=== PATIENT | female | born 1995 | race Caucasian/White ===

== ENCOUNTER 2016-08-05 19:30 | Emergency (ER) | payer SELFPAY ==
[~2016-08-05 19:30] MED LIST: AMOX500T PO; DICL50 PO; MACR100C2 PO
[2016-08-05 19:32] VITALS: BP 118/78; PULSE 97; RESP 16; TEMP 98.5; O2SAT 98
== END 2016-08-05 19:59 | disposition left against medical advice (07) ==
LOC: NED 19:30
DX: R07.9 Chest pain, unspecified (principal)
CPT/HCPCS: 99281

== ENCOUNTER 2017-01-01 12:34 | Emergency (ER) | payer SELFPAY ==
[~2017-01-01] VITALS: Ht 162.6 cm; Wt 77.0 kg
[2017-01-01 12:35] VITALS: BP 116/71; PULSE 92; RESP 20; TEMP 99.3; O2SAT 98
--- NOTE | 2017-01-01 13:02 | PD ---
Physical Exam Time Seen by Provider: 13:00 Narrative 21yo F c/o bottm left tooth pain x 4 days. No facial edema or erythema. Denies fever or vomiting. Patient seen in triage. VS reviewed. Awaiting bed placement. Data Data Last Documented VS Vital Signs Date Time Temp Pulse Resp B/P Pulse Ox O2 Delivery O2 Flow Rate FiO2 01/01/17 12:35 99.3 92 20 116/71 98 Room Air MDM Supervised Visit with ANTONIO: Maribel Cash Jan 01, 2017 13:02
[2017-01-01 13:48] VITALS: BP 98/63; PULSE 73; TEMP 99.4; O2SAT 99
--- NOTE | 2017-01-01 13:55 | PD ---
HPI . left lower tooth pain x 4 days Chief Complaint: Oral / Dental Pain or Problem Time Seen by Provider: 13:52 Travel History International Travel<30 days: No Contact w/Intl Traveler<30days: No Traveled to known affect area: No History of Present Illness HPI 21-year-old female with no significant medical history here with complaints of left lower tooth pain for 4 days. Patient says she's tried [id number] Orajel without any relief. She tells me she cannot take any Excedrin secondary something with caffeine. She has not been able to see a dentist. She denies any fever or chills. PFSH Past Medical History Hx Anticoagulant Therapy: No Anxiety: Yes Cardiovascular Problems: Yes (PSVT) Chemotherapy: No Cerebrovascular Accident: No Diabetes: No Diminished Hearing: No Immune Disorder: No Respiratory: No Myocardial Infarction: No Renal Failure: No Ulcer: No ?: Not LMP: LAST WEEK Past Surgical History Hysterectomy: No Social History Alcohol Use: No Tobacco Use: Yes (1 ppd) Substance Use: Yes (marijuana few days ago) Allergies-Medications (Allergen,Severity, Reaction): Coded Allergies: Ativan (Verified Adverse Reaction, Intermediate, works opposite, 01/01/17) Reported Meds & Prescriptions Reported Meds & Active Scripts Active No Active Prescriptions or Reported Medications Review of Systems General / Constitutional: No: Fever Eyes: No: Visual changes HENT: Positive: Dental Difficulties, No: Headaches Cardiovascular: No: Chest Pain or Discomfort Respiratory: No: Shortness of Breath Gastrointestinal: No: Abdominal Pain Genitourinary: No: Dysuria Musculoskeletal: No: Pain Skin: No Rash Neurologic: No: Weakness Psychiatric: No: Depression Endocrine: No: Polydipsia Hematologic/Lymphatic: No: Easy Bruising Physical Exam Narrative GENERAL: AAO x 3, no acute distress, Well-nourished, well-developed patient. SKIN: Warm and dry. No visible rashes or bruising. HEAD: Normocephalic and atraumatic. EYES: No scleral icterus. No injection or drainage. EOM intact, PERRLA ENT: No nasal drainage noted. Mucous membranes pink. Airway patent. Entire oral cavity inspected and there is no overt abnormality with her teeth. There is no fluid collection or abscess. There is no facial swelling NECK: Supple, trachea midline. No JVD. No lymphadenopathy CARDIOVASCULAR: Regular rate and rhythm without murmurs, gallops, or rubs. RESPIRATORY: Breath sounds equal bilaterally. No accessory muscle use. No rhonchi or rales. GASTROINTESTINAL: Visual inspection normal EXTREMITIES: No cyanosis or edema. BACK: Nontender without obvious deformity. No CVA tenderness. PSYCH: AAO x 3, normal affect. Data Data Last Documented VS Vital Signs Date Time Temp Pulse Resp B/P Pulse Ox O2 Delivery O2 Flow Rate FiO2 01/01/17 13:48 99.4 73 98/63 99 Room Air 01/01/17 12:35 20 MDM Medical Decision Making Medical Screen Exam Complete: Yes Emergency Medical Condition: No Medical Record Reviewed: Yes Differential Diagnosis Dentalgia, possible cavity, less likely oral abscess Narrative Course A medical screening exam was performed: At the time of evaluation the presenting medical condition was determined not to be of an emergent nature. The patient was given the option of receiving additional care, but declined. Patient was given options for additional community resources from which to obtain care. The Patient Has Been advised to seek medical attention for their presenting complaint. The patient has been advised to return to the ER at any time if an emergent condition develops. Diagnosis Primary Impression: Encounter for medical screening examination Scripts No Active Prescriptions or Reported Meds Condition: Stable Maria Clark Jan 01, 2017 13:54
== END 2017-01-01 14:02 | disposition left against medical advice (07) ==
LOC: NEPD 12:34
DX: K02.9 Dental caries, unspecified (principal); F17.210 Nicotine dependence, cigarettes, uncomplicated
CPT/HCPCS: 99281

== ENCOUNTER 2017-01-22 00:20 | Emergency (ER) | payer SELFPAY ==
[~2017-01-22] VITALS: Ht 162.6 cm; Wt 78.0 kg
[2017-01-22 00:22] VITALS: BP 111/68; PULSE 78; RESP 16; TEMP 98.5; O2SAT 98
[2017-01-22] MEDS ORDERED: ORPHENADRINE INJ 60 MG/2 ML AMP IM ONE (00:45)
[2017-01-22] MEDS ORDERED: KETOROLAC TROMETHAMINE 60 MG/2 ML (IM) VIAL IM ONE (00:45)
[2017-01-22] MEDS ORDERED: DEXAMETHASONE SOD PHOS 20 MG/5 ML VIAL IM ONE (00:45)
[2017-01-22] MEDS ORDERED: PRED50 PO (00:52)
[2017-01-22] MEDS ORDERED: CYCL1TAB29 PO (00:52)
[2017-01-22] MEDS ORDERED: IBUP800T23 PO (00:52)
--- NOTE | 2017-01-22 00:52 | PD ---
HPI Chief Complaint: Back/ Neck Pain or Injury Time Seen by Provider: 00:48 Travel History International Travel<30 days: No Contact w/Intl Traveler<30days: No Traveled to known affect area: No History of Present Illness HPI Patient is a 21-year-old female presenting to emergency for reevaluation of right upper back pain. Patient states the pain started one hour ago, there was no preceding injury or trauma. She states she yawned and felt her back pull. She reports the pain is 7 out of 10, worse with deep inspiration or movement. She denies any shortness of breath or chest pain, neck pain or headache. She is not taking any medications to alleviate pain. PFSH Past Medical History Hx Anticoagulant Therapy: No Anxiety: Yes Heart Rhythm Problems: Yes (SVT) Cardiovascular Problems: Yes (PSVT) Chemotherapy: No Cerebrovascular Accident: No Diabetes: No Diminished Hearing: No Immune Disorder: No Respiratory: No Myocardial Infarction: No Renal Failure: No Ulcer: No Tetanus Vaccination: > 5 Years Influenza Vaccination: No ?: Not LMP: 01/14/2017 : 0 Para: 0 Past Surgical History Hysterectomy: No Social History Alcohol Use: No Tobacco Use: Yes (one pack) Substance Use: No Allergies-Medications (Allergen,Severity, Reaction): Coded Allergies: Ativan (Verified Adverse Reaction, Intermediate, works opposite, 01/22/17) Reported Meds & Prescriptions Reported Meds & Active Scripts Active Prednisone 50 Mg Tab 50 Mg PO DAILY Flexeril (Cyclobenzaprine HCl) 10 Mg Tab 10 Mg PO TID PRN 10 Days Ibuprofen 800 Mg Tab 800 Mg PO Q6HR PRN Review of Systems Except as stated in HPI: all other systems reviewed are Neg Musculoskeletal: Positive: Myalgias, Cramping, Pain Physical Exam Narrative GENERAL: Well-nourished, well-developed patient. SKIN: Focused skin assessment warm/dry. HEAD: Normocephalic. EYES: No scleral icterus. No injection or drainage. NECK: Supple, trachea midline. No JVD or lymphadenopathy. CARDIOVASCULAR: Regular rate and rhythm without murmurs, gallops, or rubs. RESPIRATORY: Breath sounds equal bilaterally. No accessory muscle use. No wheezes, rhonchi, rales noted. GASTROINTESTINAL: Abdomen soft, non-tender, nondistended. MUSCULOSKELETAL: No cyanosis, or edema. Tenderness to palpation in right upper back just medial to the scapula. BACK: Nontender without obvious deformity. No CVA tenderness. Data Data Last Documented VS Vital Signs Date Time Temp Pulse Resp B/P Pulse Ox O2 Delivery O2 Flow Rate FiO2 01/22/17 00:36 20 01/22/17 00:22 98.5 78 111/68 98 Orders Ketorolac Inj (Toradol Inj) (01/22/17 00:45) Orphenadrine Inj (Norflex Inj) (01/22/17 00:45) Dexamethasone Inj (Decadron Inj) (01/22/17 00:45) MDM Medical Decision Making Medical Screen Exam Complete: Yes Emergency Medical Condition: Yes Interpretation(s) Vital Signs Date Time Temp Pulse Resp B/P Pulse Ox O2 Delivery O2 Flow Rate FiO2 01/22/17 00:36 20 01/22/17 00:22 98.5 78 16 111/68 98 Differential Diagnosis Strain versus sprain versus spasm versus radiculopathy versus other Narrative Course Patient's 21-year-old female presenting with one hour of right upper back pain. Patient's vital signs are stable, there was no preceding injury or trauma. Patient will be given medications to improve pain in the emergency department. She was advised that symptoms may persist for a few days, is encouraged take medications as directed, apply warm moist heat to affected area, continue range of motion exercises. She was encouraged to follow-up with her primary doctor return to emergency department for any new or worsening symptoms. Patient verbalized understanding of instructions. Patient is stable for discharge. Diagnosis Primary Impression: Muscle spasm Additional Impression: Pinched nerve Referrals: Primary Care Physician Patient Instructions: General Instructions, Muscle Cramp (GEN), Muscle Spasm ( ED) Additional Instructions: Take medications as directed Range of motion exercises, apply warm moist heat to affected area, avoid exacerbating activities Follow-up with your primary doctor Return to emergency department for new or worsening symptoms Med/Other Pt SpecificInfo: Prescription(s) given Scripts Prednisone 50 Mg Tab50 Mg PO DAILY #3 TAB Ref 0 Prov:Mitra Marcus 01/22/17 Cyclobenzaprine (Flexeril)10 Mg Tab10 Mg PO TID PRN (MUSCLE SPASM) 10 Days Ref 0 Prov:Mitra Marcus 01/22/17 Ibuprofen 800 Mg Jyc588 Mg PO Q6HR PRN (PAIN) #40 TAB Ref 0 Prov:Mitra Marcus 01/22/17 Disposition: 01 DISCHARGE HOME Condition: Stable Mitra Marcus Jan 22, 2017 00:52
== END 2017-01-22 01:58 | disposition home or self-care (01) ==
LOC: NEPD 00:20
DX: M62.838 Other muscle spasm (principal); G58.9 Mononeuropathy, unspecified; F41.9 Anxiety disorder, unspecified; I47.1 Supraventricular tachycardia; F17.200 Nicotine dependence, unspecified, uncomplicated; Z79.899 Other long term (current) drug therapy
CPT/HCPCS: 96372; 99284; J1100; J1885; J2360